=== PATIENT | male | born 1985 | race Caucasian/White ===

== ENCOUNTER 2021-01-24 19:07 | Emergency (ER) | payer OTHER ==
[~2021-01-24] VITALS: Ht 177.8 cm; Wt 77.1 kg
[~2021-01-24 19:07] MED LIST: MOTRIN800 MG PO
[2021-01-24] MEDS ORDERED: MUCINEX DM ER1 EAC1 PO (23:18)
[2021-01-24] MEDS ORDERED: ZYRTEC10 MG PO (23:18)
[2021-01-24] MEDS ORDERED: ACETAMINOPHEN650 M2 PO (23:18)
== END 2021-01-24 23:24 | disposition home or self-care (01) ==
LOC: ER 19:07
DX: J06.9 Acute upper respiratory infection, unspecified (principal); B34.9 Viral infection, unspecified; Z11.52 Encounter for screening for COVID-19

== ENCOUNTER 2021-02-24 11:19 | Emergency (ER) | payer OTHER ==
[~2021-02-24] VITALS: Ht 177.8 cm; Wt 81.6 kg
[~2021-02-24 11:19] MED LIST changes: +ACETAMINOPHEN650 M2 PO; +MUCINEX DM ER1 EAC1 PO; +ZYRTEC10 MG PO
[2021-02-24] MEDS ORDERED: ORPHENADRINE C100 MG PO (15:26)
[2021-02-24] MEDS ORDERED: DICLOFENAC POTA50 MG PO (15:26)
== END 2021-02-24 15:56 ==
LOC: ER 11:19
DX: M62.830 Muscle spasm of back (principal)